=== PATIENT | male | born 1965 | race Caucasian/White ===

== ENCOUNTER → 2016-11-19 | Outpatient (CLI) | payer MEDICARE, MEDICAID ==
[~2016-11-19] VITALS: Ht 172.7 cm; Wt 135.2 kg
[~2016-11-19] MED LIST: /AUGM875TA; /INSUREG; /MOXI40TA; ACTOPLUS MET; ACTOPLUS MET 15/850; ALLO100T; AMOX875T; ARTISOL10; AZEL0.05 OP; BACITAB; CINN500C9 PO; CLON1TAB PO; CRAN125T PO; CRANBERRY ORAL; CRES20TA PO; DEXI60CA PO; DRON5CAP6 PO; DULO30CA PO; ENAL10TA2; ENAL10TA2 PO; FISH120012 PO; FISH5CAP PO; FLAG500T; FLOM5CAP PO; FLUT1LOT EX; HYOS0.378; IMOD2TAB16 PO; INSUH10VL SC; INSULADS SC; INSULANT; JANU100T PO; LASI40TA; LIDOCAINE 2% INJ 100 MG/5 ML SDV (FOR ANES.) As Ordered ONE; LOPI600T; LYRI100C10 PO; METF500T PO; MULT1TAB9 PO; NEUR600T; NS 1,000 ML IV SCH; OLOPATADINE; OXYB5TA PO; PANTANASE; PRIL40CA; PROPOFOL 200 MG/20 ML VIAL As Ordered ONE; REFR1DRO6 OU; REST0.05 OP; SPIR100T; SPIR100T PO; TIZA4CAP3 PO; TOPA100T8 PO; VICO5TAB; VITA250L PO; VITA500T88 PO; VITATAB26 PO; XARE20TA PO; [UNRECOGNIZED DRUG - CODE] PO; fentaNYL 100 MCG/2 ML INJECTION (J3010) As Ordered ONE; natural tears
--- NOTE | 2016-11-19 13:22 | ROOR ---
Patient Name: Oz Dubon Procedure Date: 11/19/2016 1:11 PM Date of : 1965 Age: 51 Room: [facility] Gender: Male Note Status: Finalized Procedure: Upper GI endoscopy Indications: Functional Dyspepsia, Heartburn, Gastroparesis Providers: Maulik MAYER MD Referring MD: CELY MILLS NP Requesting Provider: Medicines: Monitored Anesthesia Care Complications: No immediate complications. Procedure: Pre-Anesthesia Assessment: - The heart rate, respiratory rate, oxygen saturations, blood pressure, adequacy of pulmonary ventilation, and response to care were monitored throughout the procedure. The Endoscope was introduced through the mouth, and advanced to the second part of duodenum. The upper GI endoscopy was accomplished without difficulty. The patient tolerated the procedure well. Findings: The esophagus was normal. The stomach was normal. The examined duodenum was normal. Impression: - Normal esophagus. - Normal stomach. - Normal examined duodenum. - No specimens collected. Recommendation: - Continue present medications. - Gastroparesis diet: - Eat smaller, more frequent meals throughout the day. - Low fat diet. - Liquid/soft foods are tolerated better than solid foods. - Low fiber/well cooked vegetables are tolerated better than high fiber/fibrous foods/raw vegetables. - Avoid medications that inhibit gastric/intestinal motility such as narcotic medications. Maulik Mayer MD Maulik MAYER MD 11/19/2016 1:22:18 PM This report has been signed electronically. Number of Addenda: 0 Note Initiated On: 11/19/2016 1:11 PM Estimated Blood Loss: Estimated blood loss: none.
--- NOTE | 2016-11-19 13:38 | ROOR ---
Patient Name: Oz Dubon Procedure Date: 11/19/2016 1:12 PM Date of : 1965 Age: 51 Room: [facility] Gender: Male Note Status: Finalized Procedure: Colonoscopy Indications: High risk colon cancer surveillance: Personal history of colonic polyps Providers: Maulik MAYER MD Referring MD: CELY MILLS NP Requesting Provider: Medicines: Monitored Anesthesia Care Complications: No immediate complications. Procedure: Pre-Anesthesia Assessment: - The heart rate, respiratory rate, oxygen saturations, blood pressure, adequacy of pulmonary ventilation, and response to care were monitored throughout the procedure. The Colonoscope was introduced through the anus and advanced to the terminal ileum, with identification of the appendiceal orifice and IC valve. The colonoscopy was performed without difficulty. The patient tolerated the procedure well. The quality of the bowel preparation was good. Findings: The perianal and digital rectal examinations were normal. Two sessile polyps were found in the splenic flexure. The polyps were diminutive in size. These polyps were removed with a cold snare. Resection and retrieval were complete. The exam was otherwise without abnormality on direct and retroflexion views. (Exam: Complete, Prep: Good or Excellent.) Impression: - Two diminutive polyps at the splenic flexure, removed with a cold snare. Resected and retrieved. - The examination was otherwise normal on direct and retroflexion views. Recommendation: - If the pathology report reveals adenomatous tissue, then repeat the colonoscopy for surveillance in 5 years. - Continue present medications. Maulik Mayer MD Maulik MAYER MD 11/19/2016 1:37:58 PM This report has been signed electronically. Number of Addenda: 0 Note Initiated On: 11/19/2016 1:12 PM Estimated Blood Loss: Estimated blood loss: none.
[2016-11-19 13:45] VITALS: BP 124/79
== END ==
LOC: M OPP 11:10
PROVIDERS: ATTEND Internal Medicine Gastroenterology
DX: Z12.11 Encounter for screening for malignant neoplasm of colon (principal); Z86.010 Personal history of colon polyps; D12.3 Benign neoplasm of transverse colon; K30 Functional dyspepsia; K31.84 Gastroparesis; I10 Essential (primary) hypertension; E11.9 Type 2 diabetes mellitus without complications; M19.90 Unspecified osteoarthritis, unspecified site; Z86.711 Personal history of pulmonary embolism; L40.9 Psoriasis, unspecified; Z85.47 Personal history of malignant neoplasm of testis; G93.0 Cerebral cysts; Z79.84 Long term (current) use of oral hypoglycemic drugs; Z79.899 Other long term (current) drug therapy
CPT/HCPCS: 43235; 45385; 88305; 99156; 99157; J3010

== ENCOUNTER → 2018-04-22 | Outpatient (REF) | payer MEDICARE ==
[2018-04-22 18:39] LABS: APPEARANCE, URINE CLEAR (CLEAR); BACTERIA, URINE AUTO NEGATIVE (NEGATIVE); BILIRUBIN, URINE AUTO NEGATIVE (NEGATIVE); BLOOD, URINE BLOOD NEGATIVE (NEGATIVE); COLOR, URINE YELLOW (YELLOW); GLUCOSE, URINE (UA) AUTO NEGATIVE (NEGATIVE); KETONE, URINE AUTO TRACE mg/dL (NEGATIVE); LEUKOCYTE ESTERASE, URINE AUTO NEGATIVE (NEGATIVE); NITRITE, URINE AUTO NEGATIVE (NEGATIVE); PROTEIN, URINE AUTO NEGATIVE (NEGATIVE); RBC, URINE AUTO 0 /HPF (0-3); SPECIFIC GRAVITY URINE AUTO 1.019 (1.002-1.035); SQUAMOUS EPITHELIAL CELL UR AU 1 /HPF (0-6); UROBILINOGEN, URINE AUTO 0.2 mg/dL (0.0-2.0); WBC, URINE AUTO 3 /HPF (0-3)
== END ==
LOC: M SMT 17:17
DX: R35.0 Frequency of micturition (principal)
CPT/HCPCS: 81001

== ENCOUNTER → 2020-07-07 | Outpatient (CLI) | payer MEDICARE ==
[~2020-07-07] MED LIST changes: -/INSUREG; -/MOXI40TA; +AVEL1TAB2; -CLON1TAB PO; +CLON1TAB8 PO; -CRES20TA PO; +CRES20TA2 PO; -DEXI60CA PO; +DEXI60CA2 PO; +DRON5CAP13 PO; -DRON5CAP6 PO; -DULO30CA PO; +DULO30CA9 PO; +ENAL-36 PO; -ENAL10TA2 PO; +FLOM0.4C39 PO; -FLOM5CAP PO; +ISOVUE-370 76% 100ML VIAL As Ordered ONE; -LIDOCAINE 2% INJ 100 MG/5 ML SDV (FOR ANES.) As Ordered ONE; -LYRI100C10 PO; -METF500T PO; +METF500T13 PO; +NOVO1INJ2; -NS 1,000 ML IV SCH; -OXYB5TA PO; +OXYB5TAB10 PO; +PREG100CA PO; -PROPOFOL 200 MG/20 ML VIAL As Ordered ONE; -SPIR100T PO; +SPIR100T3 PO; +TIZA4CAP PO; -TIZA4CAP3 PO; +TOPA100T12 PO; -TOPA100T8 PO; -fentaNYL 100 MCG/2 ML INJECTION (J3010) As Ordered ONE
--- NOTE | 2020-07-07 16:32 | REPVR ---
PROCEDURE INFORMATION: Exam: CT Neck With Contrast Exam date and time: 07/07/2020 3:51 PM Age: 54 years old Clinical indication: Mass, lump, or swelling in neck; Additional info: Swelling mass lump posterior; lump epiglottis dysphagia TECHNIQUE: Imaging protocol: Computed tomography images of the neck with intravenous contrast. Radiation optimization: All CT scans at this facility use at least one of these dose optimization techniques: automated exposure control; mA and/or kV adjustment per patient size (includes targeted exams where dose is matched to clinical indication); or iterative reconstruction. Contrast material: ISOVUE 37-; Contrast volume: 100 ml; Contrast route: INTRAVENOUS (IV); COMPARISON: No relevant prior studies available. FINDINGS: Nasopharynx: Unremarkable. Oropharynx: Unremarkable. No significant tonsillar enlargement. Hypopharynx: Unremarkable. Larynx: The epiglottis is unremarkable. There is no acute pharyngeal process identified. Retropharyngeal space: Unremarkable. Submandibular/Parotid glands: Normal. Glands are normal in size. Thyroid: The thyroid gland is normal. Lymph nodes: Unremarkable. No lymphadenopathy. Trachea: Visualized trachea is unremarkable. Lungs: Patchy density mosaic lung pattern suggests small airways disease. Bones/joints: The spine demonstrates moderate degenerative changes at multiple levels. Vasculature: The vasculature demonstrates diffuse moderate atherosclerotic calcification. There is no evidence of significant stenosis of the brachiocephalic vessels. Soft tissues: See "Larynx" finding. IMPRESSION: The epiglottis is unremarkable. There is no acute pharyngeal process identified. Electronically signed by: Bismark Hoffmann On 07/07/2020 16:32:39 PM
== END ==
LOC: M RAD 14:53
PROVIDERS: ATTEND Physician Assistant Medical
DX: R22.1 Localized swelling, mass and lump, neck (principal)
CPT/HCPCS: 70491; Q9967

== ENCOUNTER → 2021-12-20 | Outpatient (CLI) | payer MEDICARE, MEDICAID ==
[~2021-12-20] MED LIST changes: +E-Z-GAS II EFFERVESCENT PACKET (SODIUM BICARB./CITRIC ACID/SIMETHICONE) As Ordered ONE; +E-Z-HD 98% w/w 340GM SUSP BTL As Ordered ONE; +E-Z-PAQUE 96% w/w SUSP 176GM BTL As Ordered ONE; -ISOVUE-370 76% 100ML VIAL As Ordered ONE
== END ==
LOC: M RAD 08:35
PROVIDERS: ATTEND Physician Assistant Medical
DX: R13.10 Dysphagia, unspecified (principal)

== ENCOUNTER → 2022-01-23 | Outpatient (REF) | payer MEDICARE, MEDICAID ==
[~2022-01-23] MED LIST changes: -E-Z-GAS II EFFERVESCENT PACKET (SODIUM BICARB./CITRIC ACID/SIMETHICONE) As Ordered ONE; -E-Z-HD 98% w/w 340GM SUSP BTL As Ordered ONE; -E-Z-PAQUE 96% w/w SUSP 176GM BTL As Ordered ONE
[2022-01-23 13:31] LABS: APPEARANCE, URINE CLEAR (CLEAR); BACTERIA, URINE AUTO NEGATIVE (NEGATIVE); BILIRUBIN, URINE AUTO NEGATIVE (NEGATIVE); BLOOD, URINE BLOOD NEGATIVE (NEGATIVE); COLOR, URINE STRAW (YELLOW); GLUCOSE, URINE (UA) AUTO 3+ mg/dL (NEGATIVE); KETONE, URINE AUTO NEGATIVE (NEGATIVE); LEUKOCYTE ESTERASE, URINE AUTO NEGATIVE (NEGATIVE); NITRITE, URINE AUTO NEGATIVE (NEGATIVE); PROTEIN, URINE AUTO NEGATIVE (NEGATIVE); RBC, URINE AUTO 0 /HPF (0-3); SPECIFIC GRAVITY URINE AUTO 1.021 (1.002-1.035); SQUAMOUS EPITHELIAL CELL UR AU 1 /HPF (0-6); UROBILINOGEN, URINE AUTO 0.2 mg/dL (0.0-2.0); WBC, URINE AUTO 1 /HPF (0-3)
== END ==
LOC: M SMT 12:54
PROVIDERS: ATTEND Urology
DX: R31.0 Gross hematuria (principal)

== ENCOUNTER → 2024-02-07 | Outpatient (REF) | payer MEDICARE, MEDICAID ==
[~2024-02-07] MED LIST changes: -ENAL-36 PO; +ENAL1TAB50 PO; -OXYB5TAB10 PO; +OXYB5TAB14 PO
[2024-02-07 17:56] LABS: APPEARANCE, URINE CLEAR (CLEAR); BACTERIA, URINE AUTO NEGATIVE (NEGATIVE); BILIRUBIN, URINE AUTO NEGATIVE (NEGATIVE); BLOOD, URINE BLOOD NEGATIVE (NEGATIVE); COLOR, URINE YELLOW (YELLOW); GLUCOSE, URINE (UA) AUTO 3+ mg/dL (NEGATIVE); KETONE, URINE AUTO NEGATIVE (NEGATIVE); LEUKOCYTE ESTERASE, URINE AUTO NEGATIVE (NEGATIVE); NITRITE, URINE AUTO NEGATIVE (NEGATIVE); PROTEIN, URINE AUTO NEGATIVE (NEGATIVE); RBC, URINE AUTO 4 /HPF (0-3); SPECIFIC GRAVITY URINE AUTO 1.028 (1.002-1.035); SQUAMOUS EPITHELIAL CELL UR AU 0 /HPF (0-6); UROBILINOGEN, URINE AUTO 0.2 mg/dL (0.0-2.0); WBC, URINE AUTO 4 /HPF (0-3)
== END ==
LOC: M LAB REF 16:57
PROVIDERS: ATTEND Urology
DX: N40.0 Benign prostatic hyperplasia without lower urinary tract symptoms (principal)